=== PATIENT | female | born 1995 | race Two or more races ===

== ENCOUNTER 2020-09-23 16:45 | Emergency (ER) | payer SELFPAY ==
[~2020-09-23] VITALS: Ht 157.5 cm; Wt 63.6 kg
--- NOTE | 2020-09-23 16:55 | PHYS DOC ---
Past Medical History Past Medical History: No Pertinent History (BUSHRA GAYTAN DO) Past Surgical History: No Surgical History (BUSHRA GAYTAN DO) General Adult EDM: Chief Complaint: ABDOMINAL PAIN HPI: HPI: Patient is a 24 year old female who was brought here by EMS from home due to lower pelvic pain, cramping in nature. Patient says she is , her last menstrual period was in the middle of May of this year. Patient has not had care. Patient says she had a pelvic ultrasound done when she was about 10 weeks in [place], confirmed intrauterine . Patient denies any vaginal bleeding. Patient denies any fever, no chest pain, no trouble breathing, no nausea vomiting. Patient said the pain coming wave like she is having contraction. Symptoms started this morning. Patient said this is her fifth , she has 3 live children and 1 . Her last baby was born 6 years ago. Patient said her blood type is AB+ . Alll her pregnancies were delivered by vaginally. (BUSHRA GAYTAN DO) Review of Systems: Review of Systems: Constitutional: Denies fever or chills. [] Eyes: Denies change in visual acuity. [] HENT: Denies nasal congestion or sore throat. [] Respiratory: Denies cough or shortness of breath. [] Cardiovascular: Denies chest pain or edema. [] GI: Denies abdominal pain, nausea, vomiting, bloody stools or diarrhea. [] : Positive for pelvic pain, no vaginal bleeding. Musculoskeletal: Denies back pain or joint pain. [] Integument: Denies rash. [] Neurologic: Denies headache, focal weakness or sensory changes. [] Endocrine: Denies polyuria or polydipsia. [] Lymphatic: Denies swollen glands. [] Psychiatric: Denies depression or anxiety. [] (BUSHRA GAYTAN DO) Heart Score: C/O Chest Pain: N/A Risk Factors: Risk Factors: DM, Current or recent (<one month) smoker, HTN, HLP, family history of CAD, obesity. Risk Scores: Score 0 - 3: 2.5% MACE over next 6 weeks - Discharge Home Score 4 - 6: 20.3% MACE over next 6 weeks - Admit for Clinical Observation Score 7 - 10: 72.7% MACE over next 6 weeks - Early Invasive Strategies (BUSHRA GAYTAN DO) Current Medications: Current Medications Medications (Trade) Dose Ordered Sig/[facility] Start Time Stop Time Status Last Admin Dose Admin Fentanyl Citrate (Fentanyl 2ml Vial) 50 mcg 1X ONCE 09/23/20 17:00 09/23/20 17:01 UNV Ondansetron HCl (Zofran) 4 mg 1X ONCE 09/23/20 17:00 09/23/20 17:01 UNV Sodium Chloride 1,000 ml @ 1,000 mls/hr 1X ONCE 09/23/20 17:00 09/23/20 17:59 UNV (BUSHRA GAYTAN DO) Allergies: Allergies: Allergies Coded Allergies Type Severity Reaction Last Updated Verified coconut Allergy Severe anaphylaxis 09/23/20 Yes acetaminophen Allergy Intermediate hives 09/23/20 Yes hydrocodone Allergy Intermediate hives 09/23/20 Yes (BUSHRA GAYTAN DO) Physical Exam: PE: Constitutional: Well developed, well nourished, no acute distress, non-toxic appearance. [] HENT: Normocephalic, atraumatic, bilateral external ears normal, oropharynx moist, no oral exudates, nose normal. [] Eyes: PERRLA, EOMI, conjunctiva normal, no discharge. [] Neck: Normal range of motion, no tenderness, supple, no stridor. [] Cardiovascular:Heart rate regular rhythm, no murmur [] Lungs & Thorax: Bilateral breath sounds clear to auscultation [] Abdomen: Bowel sounds normal, soft, there is tenderness to palpation in suprapubic area, gravid abdomen just above belly button area, no pulsatile masses. NO VAGINAL BLEEDING NOTED. Skin: Warm, dry, no erythema, no rash. [] Back: No tenderness, no CVA tenderness. [] Extremities: No tenderness, no cyanosis, no clubbing, ROM intact, no edema. [] Neurologic: Alert and oriented X 3, normal motor function, normal sensory function, no focal deficits noted. [] Psychologic: Affect normal, judgement normal, mood normal. [] (BUSHRA GAYTAN DO) PE: Constitutional: Well developed, well nourished, no acute distress, non-toxic appearance HENT: Normocephalic, atraumatic Eyes: Conjunctiva normal, no discharge Neck: Normal range of motion, supple Lungs & Thorax: No respiratory distress, equal chest rise and fall Abdomen: Soft, no tenderness Pelvic exam: Awning Installer: Nicolasa JENNINGS, external genitalia normal, copious white thin discharge noted in vaginal vault, no CMT, no adnexal tenderness Skin: Warm, dry, no erythema, no rash Extremities: No tenderness, ROM intact, no edema Neurologic: Alert and oriented X 3, no focal deficits noted Psychologic: Affect normal, judgment normal (RODRICK TIDWELL DO) Current Patient Data: Labs: Laboratory Tests Test 09/23/20 16:50 White Blood Count 5.8 x10^3/uL Red Blood Count 4.63 x10^6/uL Hemoglobin 12.3 g/dL Hematocrit 35.9 % Mean Corpuscular Volume 78 fL Mean Corpuscular Hemoglobin 27 pg Mean Corpuscular Hemoglobin Concent 34 g/dL Red Cell Distribution Width 14.3 % Platelet Count 169 x10^3/uL Neutrophils (%) (Auto) 71 % Lymphocytes (%) (Auto) 21 % Monocytes (%) (Auto) 6 % Eosinophils (%) (Auto) 1 % Basophils (%) (Auto) 1 % Neutrophils # (Auto) 4.1 x10^3/uL Lymphocytes # (Auto) 1.2 x10^3/uL Monocytes # (Auto) 0.4 x10^3/uL Eosinophils # (Auto) 0.1 x10^3/uL Basophils # (Auto) 0.0 x10^3/uL Maternal Serum HCG Beta Subunit 95937 mIU/mL Sodium Level 139 mmol/L Potassium Level 3.5 mmol/L Chloride Level 107 mmol/L Carbon Dioxide Level 21 mmol/L Anion Gap 11 Blood Urea Nitrogen 6 mg/dL Creatinine 0.6 mg/dL Estimated GFR (Cockcroft-Gault) 123.9 BUN/Creatinine Ratio 10 Glucose Level 94 mg/dL Calcium Level 9.1 mg/dL Magnesium Level 1.9 mg/dL Total Bilirubin 0.3 mg/dL Aspartate Amino Transf (AST/SGOT) 17 U/L Alanine Aminotransferase (ALT/SGPT) 20 U/L Alkaline Phosphatase 53 U/L Total Protein 6.6 g/dL Albumin 3.3 g/dL Albumin/Globulin Ratio 1.0 Current Medications Medications (Trade) Dose Ordered Sig/[place] Route PRN Reason Start Time Stop Time Status Last Admin Dose Admin Fentanyl Citrate (Fentanyl 2ml Vial) 50 mcg 1X ONCE IVP 09/23/20 17:30 09/23/20 17:31 DC 09/23/20 17:13 Ondansetron HCl (Zofran) 4 mg 1X ONCE IVP 09/23/20 17:30 09/23/20 17:31 DC 09/23/20 17:11 Sodium Chloride 1,000 ml @ 1,000 mls/hr 1X ONCE IV 09/23/20 17:00 09/23/20 17:59 09/23/20 17:10 (BUSHRA GAYTAN DO) EKG: EKG: [] (BUSHRA GAYTAN DO) Radiology/Procedures: Radiology/Procedures: [] (BUSHRA GAYTAN DO) Radiology/Procedures: PROCEDURE: OB LIMITED OB ultrasound dated 09/23/2020: No comparison available. Clinical Indication: Abdominal pain. Contractions. Findings: There is a single intrauterine gestation in variable presentation. The placenta is posterior in location without evidence of placental previa. The amount of amniotic fluid appears appropriate. Biometrical data is as follows: BPD = 2.4 cm for 14 weeks 0 days. HC = 9.7 cm for 40 weeks 3 days. AC = 7.5 cmfor 14 weeks 0 days. FL = 1.4 cm for 14 weeks 1 days. Overall, the estimated sonographic gestational age is 14 weeks 1 day for an estimated date of delivery of 03/23/2021. Estimated weight is 90 g. Complete survey was not performed. cardiac activity 163 BPM. There is movement detected. Impression: Single viable intrauterine gestation with estimated sonographic gestational age of 14 weeks 1 day. No acute findings.. Electronically signed by: Rodrick Rizzo MD (09/23/2020 6:38 PM) [facility] (RODRICK TIDWELL DO) Course & Med Decision Making: Course & Med Decision Making Pertinent Labs and Imaging studies reviewed. (See chart for details) Patient is a 24-year-old female who is , presented to ER due to pelvic pain, pelvic ultrasound is pending at this time. Patient's care is being transferred over to the incoming physician at shift change Dr. Rodrick Tidwell. (BUSHRA GAYTAN DO) Course & Med Decision Making 1800- Sign out received from Dr. Gaytan for patient with abdominal cramping in . Patient pending UA and OB ultrasound. Labs reviewed. Symptomatic treatment previously provided. UA without sign of UTI but noted trichomoniasis. OB ultrasound with single intrauterine gestation estimated at 14 weeks 1 day gestational age without other acute finding. Patient seen and evaluated by myself. Given Trichomoniasis noted, patient offered pelvic exam. Pelvic exam performed. Chlamydia/Gonorrhea cultures pending. Empiric treatment provided. Rx for Flagyl provided. A copy of ultrasound report with patient's beta-hCG and blood type provided for patient to give to her OB. Patient stable for discharge with outpatient follow-up with PCP/OB. Discussed findings and plan with patient, who acknowledges understanding and agreement. (RODRICK TIDWELL DO) Dragon Disclaimer: Dragon Disclaimer: This electronic medical record was generated, in whole or in part, using a voice recognition dictation system. (BUSHRA GAYTAN DO) Departure Departure Impression: Primary Impression: Pelvic pain during Additional Impressions: Trichomonosis Bacterial vaginosis in Disposition: HOME / SELF CARE / HOMELESS Condition: STABLE Referrals: JULIEN SIMON Jr, MD Patient Instructions: ABCs of , Abdominal Pain During , [id number], Bacterial Vaginosis, [id number], Trichomoniasis Scripts Pnv No.122/Iron/Folic Acid ( Multi Tablet) 1 Each Tablet 1 TAB PO DAILY for 30 Days, #30 TAB 0 Refills Prov: RODRICK TIDWELL DO 09/23/20 Ondansetron (ONDANSETRON ODT) 4 Mg Tab.rapdis 1 TAB PO PRN Q6-8HRS PRN for NAUSEA, #16 TAB Prov: RODRICK TIDWELL DO 09/23/20 Metronidazole (FLAGYL) 500 Mg Tablet 500 MG PO BID for Trichomonal infection, #14 TAB Prov: RODRICK TIDWELL DO 09/23/20 BUSHRA GAYTAN DO September 23, 2020 16:55 RODRICK TIDWELL DO September 23, 2020 18:58
[2020-09-23 16:58] LABS: BASO % 1 % (0-3); EOS # 0.1 x10^3/uL (0.0-0.7); EOS % 1 % (0-3); HEMATOCRIT 35.9 % (36.0-47.0); HEMOGLOBIN 12.3 g/dL (12.0-15.5); LYMPH # 1.2 x10^3/uL (1.0-4.8); LYMPH % 21 % (24-48); MEAN CORPUSCULAR HEMOGLOBIN 27 pg (25-35); MEAN CORPUSCULAR HGB CONC 34 g/dL (31-37); MEAN CORPUSCULAR VOLUME 78 fL (79-100); MONO # 0.4 x10^3/uL (0.0-1.1); MONO % 6 % (0-9); NEUT # 4.1 x10^3/uL (1.8-7.7); NEUT % 71 % (31-73); PLATELET COUNT 169 x10^3/uL (140-400); RED BLOOD COUNT 4.63 x10^6/uL (3.50-5.40); RED CELL DISTRIBUTION WIDTH 14.3 % (11.5-14.5); WHITE BLOOD COUNT 5.8 x10^3/uL (4.0-11.0)
[2020-09-23] MEDS ORDERED: IV NORMAL SALINE 1000ML BAG 1,000 ML IV ONE (17:00)
[2020-09-23 17:09] LABS: CALCIUM 9.1 mg/dL (8.5-10.1); CREATININE 0.6 mg/dL (0.6-1.0); GFR 123.9; POTASSIUM 3.5 mmol/L (3.5-5.1)
[2020-09-23 17:15] LABS: ALBUMIN 3.3 g/dL (3.4-5.0); MAGNESIUM 1.9 mg/dL (1.8-2.4); TOTAL BILIRUBIN 0.3 mg/dL (0.2-1.0); TOTAL PROTEIN 6.6 g/dL (6.4-8.2)
[2020-09-23] MEDS ORDERED: fentaNYL PF VIAL 100 MCG/2 ML VIAL IVP ONE (17:30)
[2020-09-23] MEDS ORDERED: ONDANSETRON PF 4 MG/2 ML VIAL. IVP ONE (17:30)
[2020-09-23 18:36] LABS: BILIRUBIN,URINE NEGATIVE (NEG); CLARITY,URINE CLEAR; COLOR,URINE YELLOW; NITRITE,URINE NEGATIVE (NEG); PH,URINE 7.5 (<5.0-8.0); PROTEIN,URINE NEGATIVE (NEG-TRACE)
--- NOTE | 2020-09-23 18:40 | RAD ---
OB ultrasound dated 09/23/2020: No comparison available. Clinical Indication: Abdominal pain. Contractions. Findings: There is a single intrauterine gestation in variable presentation. The placenta is posterior in locat ion without evidence of placental previa. The amount of amniotic fluid appears appropriate. Biometrical data is as follows: BPD = 2.4 cm for 14 weeks 0 days. HC = 9.7 cm for 40 weeks 3 days. AC = 7.5 cmfor 14 weeks 0 days. FL = 1.4 cm for 14 weeks 1 days. Overall, the estimated sonographic gestational age is 14 weeks 1 day for an estimated date of deliver y of 03/23/2021. Estimated weight is 90 g. Complete survey was not performed. cardiac activity 163 BPM. There is movement dete cted. Impression: Single viable intrauterine gestation with estimated sonographic gestational age of 14 weeks 1 day. No acute findings.. Electronically signed by: Rodrick Rizzo MD (09/23/2020 6:38 PM) [facility]
[2020-09-23 18:45] LABS: BACTERIA,URINE MODERATE /HPF (0-FEW)
[2020-09-23 18:47] LABS: TRICHOMONAS,URINE PRESENT
[2020-09-23 18:48] LABS: RBC,URINE RARE /HPF (0-2)
[2020-09-23] MEDS ORDERED: METR500T PO (18:57)
[2020-09-23] MEDS ORDERED: metroNIDAZOLE 500 MG TABLET PO ONE (19:00)
[2020-09-23] MEDS ORDERED: ONDA4TAB12 PO (19:07)
[2020-09-23] MEDS ORDERED: PNV1TABL78 PO (19:07)
[2020-09-23] MEDS ORDERED: AZITHROMYCIN 250 MG TABLET. PO ONE (19:30)
[2020-09-23] MEDS ORDERED: cefTRIAXone IM 500 MG VIAL. IM ONE (19:30)
[2020-09-23 20:13] VITALS: BP 113/69
[2020-09-25 18:12] LABS: GC PROBE Negative (Negative)
== END 2020-09-23 20:25 | disposition home or self-care (01) ==
LOC: ER 16:45
DX: O26.892 Other specified pregnancy related conditions, second trimester (principal); R10.2 Pelvic and perineal pain; A59.9 Trichomoniasis, unspecified; N76.0 Acute vaginitis; B96.89 Other specified bacterial agents as the cause of diseases classified elsewhere; Z88.5 Allergy status to narcotic agent; Z88.6 Allergy status to analgesic agent; Z91.018 Allergy to other foods
CPT/HCPCS: 36415; 76815; 80053; 81001; 83735; 84702; 85025; 86900; 86901; 87086; 87491; 87591; 96361; 96372; 96374; 96375; 99285; J0696; J2405; J3010; J7030; Q0111